=== PATIENT | male | born 1980 | race Caucasian/White ===

== ENCOUNTER → 2016-07-11 | Day surgery (SDC) | payer OTHER ==
[~2016-07-11] VITALS: Ht 170.2 cm; Wt 63.0 kg
[~2016-07-11] MED LIST: 0.9% Sodium Chloride 0 ML ONE; 0.9% Sodium Chloride 1,000 ML IV SCH; Bupivacaine-MPF 0.5% 30 mL Inj ONE; DOXY100C43 PO; Heparin 5,000 Units/500 mL NS Premix IV ONE; TERB250T4 PO; Vancomycin 1,000 mg/200 mL D5W IV ONE
[2016-07-11 08:30] VITALS: BP 118/83; PULSE 66; RESP 17; O2SAT 99
--- NOTE | 2016-07-11 08:30 | NUR ---
ADMISSION NOTE MALE PT ADMITTED FOR LOOP RECORDER. DISCUSSED PLAN OF CARE WITH PT. SEE ADMIT AND FLOW SHEET
[2016-07-11 09:16] LABS: BASOPHILS % (AUTO) 0.9 % (0-3); EOSINOPHILS % (AUTO) 2.4 % (0-5); MONOCYTES % (AUTO) 9.9 % (4-12); Mean Corpuscular Hemoglobin 33.1 pg (27.0-35.0); NEUTROPHILS % (AUTO) 49.1 % (40-74); Platelet Count 203 bil/L (150-400)
[2016-07-11 09:27] LABS: INR 0.95 ratio
[2016-07-11 12:00] VITALS: BP 106/80; PULSE 64; RESP 24; O2SAT 100
--- NOTE | 2016-07-11 12:00 | NUR ---
POST PROCEDURE NOTE RETURNED FROM MARKETING SALES MANAGER. SEE FLOW SHEET
[2016-07-11 12:05] VITALS: BP 106/80
[2016-07-11 12:10] VITALS: BP 110/73
[2016-07-11 12:15] VITALS: BP 114/69; O2SAT 97
[2016-07-11 12:30] VITALS: BP 105/77; PULSE 61; RESP 16; O2SAT 98
--- NOTE | 2016-07-11 21:46 | OP ---
[address] [address] OPERATIVE REPORT PATIENT: RAY DUNNE : 1980 MR#: [id number] ADMIT: 07/11/2016 JOB ID: [id number] DATE OF SURGERY: 07/11/2016 SURGEON: Ronnie Alexis MD. PREOPERATIVE DIAGNOSIS(ES): Recurrent syncope. POSTOPERATIVE DIAGNOSIS(ES): Recurrent syncope. PATIENT PROFILE: The patient is a 36-year-old male who has recurrent syncope. PROCEDURE: Injectable loop recorder implantation. COMPLICATION: None. IMPLANTED DEVICE: Belly Reveal LINQ, model LNQ11, serial #[id number]. DESCRIPTION OF PROCEDURE: The left parasternal area was prepped and draped under standard sterile technique. The left parasternal region was infiltrated with a 50/50% mixture of lidocaine and Marcaine. The skin incision was made with the provided scalpel. An injectable loop recorder was then implanted into the subcutaneous tissue under the provided applicator. After hemostasis was achieved, the skin was approximated with Dermabond. The patient tolerated the procedure well and was transferred to his room in stable condition. Vancomycin 1 g was given IV due to concern of a small area of sterile field. The device was set to detect bradycardia below 30 beats per minute, tachycardia above 194 beats per minute, and pause over 3 seconds. The sensitivity threshold is 0.035 mV. MTDD
--- NOTE | 2016-08-20 09:13 | PCM.DIMED ---
Discharge Instructions Date of Service Aug 20, 2016 Dates of Hospitalization Aug 19, 2016 Discharge Diagnosis Discharge Diagnosis Asystole Syncope Diet No restrictions Activity Other (Do not extend left elbow high above shoulder for one month. Do not lift , push or pull more than 10 lbs with the left arm for one month.) Call your provider Fever or Chills, Bleeding, Excessive diarrhea Patient Instructions Follow-up in: 1 week Mid-level Provider (F9): Casey Whittington PA-C Follow-up with Mid-level in: 6 weeks Casey Whittington PA-C Aug 20, 2016 09:13
== END | disposition home or self-care (01) ==
LOC: SOUO 01:34
PROVIDERS: ATTEND Internal Medicine Interventional Cardiology
DX: R55 Syncope and collapse (principal)
CPT/HCPCS: 33282; 36415; 80048; 85025; 85610; 93005; C1764; J1644

== ENCOUNTER 2016-08-19 01:18 | Day surgery (SDC) | payer OTHER ==
[2016-08-19] VITALS (13 sets, daily range): BP systolic 95–128; BP diastolic 61–78; PULSE 61–80; RESP 12–20; O2SAT 95–98
[~2016-08-19] VITALS: Ht 170.2 cm; Wt 62.6 kg
[~2016-08-19 01:18] MED LIST changes: -0.9% Sodium Chloride 0 ML ONE; -0.9% Sodium Chloride 1,000 ML IV SCH; -Bupivacaine-MPF 0.5% 30 mL Inj ONE; -DOXY100C43 PO; -Heparin 5,000 Units/500 mL NS Premix IV ONE; -Vancomycin 1,000 mg/200 mL D5W IV ONE
[2016-08-19] MEDS ORDERED: Vancomycin 1,000 mg/200 mL NS IV SCH (07:15)
[2016-08-19 08:25] LABS: BASOPHILS % (AUTO) 0.6 % (0-3); EOSINOPHILS % (AUTO) 1.8 % (0-5); MONOCYTES % (AUTO) 10.5 % (4-12); Mean Corpuscular Hemoglobin 32.4 pg (27.0-35.0); NEUTROPHILS % (AUTO) 57.9 % (40-74); Platelet Count 229 bil/L (150-400)
--- NOTE | 2016-08-19 08:40 | NUR ---
Patient admitted for pacemaker implant by Dr Menjivar.He is accompanied by his .
[2016-08-19] MEDS ORDERED: 0.9% Sodium Chloride 250 ML ONE (09:25)
[2016-08-19] MEDS ORDERED: Water for Injection 50 ML IV ONE (09:25)
[2016-08-19] MEDS ORDERED: Heparin 10,000 Unit/1,000 mL NS Premix IV ONE (09:25)
[2016-08-19] MEDS ORDERED: Vancomycin 1,000 mg Inj ONE (09:25)
[2016-08-19] MEDS ORDERED: Bupivacaine-MPF 0.5% 30 mL Inj ONE (09:25)
[2016-08-19] MEDS ORDERED: fentaNYL-PF 50 mCg/mL 2 mL Inj ONE ×2 (09:54→10:52)
[2016-08-19] MEDS ORDERED: 0.9% Sodium Chloride 1,000 ML IV SCH (11:21)
[2016-08-19] MEDS ORDERED: Ondansetron 2 mg/mL 2 mL Inj IVPUSH PRN (11:25)
[2016-08-19] MEDS ORDERED: HYDROcodone-APAP 5-325 mg Tablet PO PRN (11:25)
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
--- NOTE | 2016-08-19 13:32 | DRSVH ---
PROCEDURE: X-RAY CHEST ONE VIEW, PORTABLE ([id number]) INDICATIONS: For new leads placed TECHNIQUE: One view of the chest was acquired. COMPARISON: None. FINDINGS: Surgical changes and devices: Dual chamber left cardiac pacer present in expected position. Lungs and pleura: No pleural effusions or pneumothorax. Lungs are clear. Mediastinum: Mediastinal contours appear normal. Heart size is normal. Bones and chest wall: No suspicious bony lesions. Overlying soft tissues appear unremarkable. IMPRESSION: No immediate complications status post cardiac pacemaker placement. Dictated by: Ricardo FOREMAN Interpreted: Reyna Botello MD on 08/19/2016 at 13:32 Transcribed by: ABIGAIL on 08/19/2016 at 13:32 Approved by: Reyna Botello M.D. on 08/19/2016 at 14:03
--- NOTE | 2016-08-19 13:57 | NUR ---
Report called to Shoshana Womack Left pacer site without hematoma, bleeding or oozing. Pt ready for transport, remains in sinus rhythm.
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
--- NOTE | 2016-08-19 14:13 | NUR ---
Patient tx to room 3022 in stable condition.Handoff at bedside to Shoshana Jenkins R.N.
--- NOTE | 2016-08-19 14:14 | NUR ---
[place] [facility] [place]. A/Ox3, no complains of increased pain or dizziness. L chest dressing clean/dry/intact. Family at bedside visiting with pt. Frequent rounding in place.
[2016-08-19] MEDS ORDERED: Vancomycin Inj 1,000 MG in IV Premix 1 EACH IV ONE (23:25)
[2016-08-20 00:26] VITALS: BP 103/58; PULSE 68; RESP 18; O2SAT 97
[2016-08-20 00:32] VITALS: BP 122/67; PULSE 93; RESP 18; O2SAT 96
[2016-08-20 05:34] VITALS: BP 207/78; PULSE 74; RESP 18; O2SAT 96
[2016-08-20 05:38] VITALS: BP 118/68; PULSE 70; RESP 18; O2SAT 97
[2016-08-20 06:03] VITALS: PULSE 65
--- NOTE | 2016-08-20 06:08 | NUR ---
Uneventful Night: Pt rested throughout the night with no complaints of chest pain or discomfort. Denies SOB, n/v. Up walking around unit at beginning of shift. at bedside. Call light within reach. Pleasant and cooperative with care.
--- NOTE | 2016-08-20 08:38 | DRSVH ---
PROCEDURE: X-RAY CHEST, TWO VIEWS ([id number]) INDICATIONS: For new lead placement TECHNIQUE: 2 views of the chest were acquired. COMPARISON: [facility], CR, XR CHEST 1VW (PORTABLE), 08/19/2016, 11:40. FINDINGS: Surgical changes and devices: Left-sided pacer. Lungs and pleura: No pleural effusions or pneumothorax. Lungs are clear. Mediastinum: Mediastinal contours are normal. Heart size is normal. Bones and chest wall: No suspicious bony abnormalities. Soft tissues appear unremarkable. IMPRESSION: No acute process. Dictated by: Raymundo Khan M.D. on 08/20/2016 at 8:31 Approved by: Raymundo Khan M.D. on 08/20/2016 at 8:32
[2016-08-20] MEDS ORDERED: DOXY100C43 PO (09:15)
[2016-08-20 10:11] VITALS: PULSE 72
--- NOTE | 2016-08-20 10:40 | PCM.DIMED ---
Discharge Instructions Date of Service Aug 20, 2016 Dates of Hospitalization Discharge Diagnosis Discharge Diagnosis Syncope Sinus Arrest Diet No restrictions Activity Other (Do not extend left arm high above left shoulder for one month. Do not lift more that 10 lbs with the left arm for one month.) Call your provider Fever or Chills, Bleeding, Excessive diarrhea Patient Instructions Follow-up in: 1 week Mid-level Provider (F9): Casey Whittington PA-C Follow-up with Mid-level in: 6 weeks Casey Whittington PA-C Aug 20, 2016 10:40
--- NOTE | 2016-08-20 11:04 | NUR ---
Discharge: Patient discharged to home @ approx 1100. IV x2 d/c'd intact, telemetry removed, instrumentation and controls technician notified. Personal belongings sent home w/patient. Reviewed antibiotic prescription, home medication list, d/c instructions, activity restriction r/t pacemaker placement and follow up appointments. Verbalized understanding. Ambulated to main entrance. No apparent distress noted at time of discharge.
--- NOTE | 2016-08-20 11:08 | DIS ---
[address] [address] DISCHARGE SUMMARY PATIENT: RAY DUNNE : 1980 MR#: [id number] ADMIT: 08/19/2016 JOB ID: [id number] DIS: REASON FOR ADMISSION: Pacemaker implant. CHIEF COMPLAINT: Recurrent syncope. BRIEF HISTORY: The patient is a pleasant 36-year-old man with a history of recurrent syncope on about five occasions now over the past two years. A couple of months ago he had an ECG memory loop recorder implanted and then on August 18, 2016, he had an episode of baldev syncope, which correlated to a profound sinus arrest of approximately 28 seconds. He was advised of his need for a cardiac pacemaker to prevent recurrent syncope and was admitted for that purpose. COURSE IN HOSPITAL: The patient was admitted through the [facility] and taken to the catheterization laboratory, where he received the dual-chamber pacemaker system without incident. The ECG loop recorder was explanted. He was then taken back to the [facility] for recovery from sedation and then brought up to the third floor and for overnight observation. He did well overnight and his cardiac telemetry showed normal sinus rhythm. He was ambulatory without difficulty and felt well for discharge home. He denied much site discomfort and had no chest pain, shortness of breath, or lightheadedness. Chest x-ray showed good lead positions and no pneumothorax. Device evaluation showed excellent capture and sensing thresholds and only < 1% pacing. The pacemaker site is closed and dry. There is no hematoma. DISPOSITION: The patient was discharged home in good condition with a followup appointment at the [facility] Cardiology office in one week. He was asked not to lift, push, or pull more than 10 pounds for one month and also to not extend his left elbow above his shoulder for one month. He will follow a regular diet. DISCHARGE MEDICATIONS: 1. Doxycycline 100 mg daily for 1 week. 2. Lamisil 250 mg tablets p.r.n. FINAL DIAGNOSES: 1. Recurrent syncope. 2. Documented sinus arrest of 28 seconds.
== END 2016-08-20 10:55 | disposition home or self-care (01) ==
LOC: SOUO 01:18 → MPC 14:11 → SOUO 08-20 10:55
PROVIDERS: ATTEND Internal Medicine Cardiovascular Disease
DX: I49.5 Sick sinus syndrome (principal); R55 Syncope and collapse; I45.5 Other specified heart block
CPT/HCPCS: 33208; 33284; 36415; 71010; 71020; 80048; 85025; 85610; 93005; 99152; C1769; C1785; C1892; C1898; J1644; J2250; J3010; J3370; J7050; Q9967